=== PATIENT | female | born 1960 | race African-American/Black ===

== ENCOUNTER 2025-09-08 12:59 | Emergency (ER) | payer MEDICAID ==
[~2025-09-08] VITALS: Ht 157.5 cm; Wt 65.0 kg
[~2025-09-08 12:59] MED LIST: LEVO500T2 PO
[2025-09-08 13:01] VITALS: O2SAT 99
[2025-09-08 13:51] LABS: CREATININE 1.1 mg/dL (0.6-1.0); UREA NITROGEN BLOOD 21 mg/dL (9-23)
[2025-09-08 14:14] LABS: PROTEIN TOTAL 7.4 g/dL (6.0-8.3)
[2025-09-08 14:15] LABS: ASPARTATE AMINOTRANSFERASE 21 IU/L (<34); BILIRUBIN DIRECT 0.1 mg/dL (<=3.0); BILIRUBIN TOTAL 0.5 mg/dL (0.1-1.0)
[2025-09-08 14:19] LABS: CLARITY URINE CLEAR (CLEAR); COLOR URINE YELLOW (YELLOW); GLUCOSE URINE NEGATIVE (NEGATIVE); KETONES URINE NEGATIVE (NEGATIVE); LEUKOCYTE ESTERASE URINE TRACE (NEGATIVE); NITRITE URINE NEGATIVE (NEGATIVE); OCCULT BLOOD URINE NEGATIVE (NEGATIVE); PH URINE 5.5 (4.5-8.0); PROTEIN URINE NEGATIVE (NEGATIVE); SPECIFIC GRAVITY URINE 1.026 (1.005-1.030); UROBILINOGEN URINE 1.0 E.U./dL (0.2-1.0)
[2025-09-08] MEDS: ONDANSETRON 4MG ODT PO ONE (14:27)
[2025-09-08] MEDS: KETOROLAC 30MG/ML VIAL IM ONE (14:28)
[2025-09-08 14:44] LABS: SQUAMOUS EPITHELIAL CELL URINE 2+ /lpf (RARE/1+)
[2025-09-08 14:45] LABS: BACTERIA URINE TRACE; TRICHOMONAS URINE 1+
[2025-09-08 14:46] LABS: RBC URINE 0-2 /hpf (0-2)
[2025-09-08 15:34] LABS: BASOPHILS % 0.3 % (0.0-2.0); EOSINOPHILS % 5.9 % (0.0-5.0); HEMATOCRIT. 40.9 % (36.0-48.0); HEMOGLOBIN. 13.6 g/dL (12.0-16.0); LYMPHOCYTES % 30.7 % (20.0-50.0); MEAN PLATELET VOLUME 7.8 fl (7.4-10.4); MONOCYTES % 11.3 % (2.0-8.0); NEUTROPHILS % 51.8 % (40.0-76.0); PLATELET 175 x1000/uL (130-400); RED BLOOD CELL COUNT 4.12 mill/uL (4.2-5.4); RED CELL DISTRIBUTION WIDTH 12.8 % (11.6-14.6)
[2025-09-08] MEDS: METRONIDAZOLE 500MG TABLET PO NR (17:14)
[2025-09-08 17:24] VITALS: BP 141/76; PULSE 85; RESP 18; TEMP 37; O2SAT 100
== END 2025-09-08 17:27 | disposition home or self-care (01) ==
LOC: ER 13:16
DX: A59.9 Trichomoniasis, unspecified (principal); J45.909 Unspecified asthma, uncomplicated; I10 Essential (primary) hypertension; Z88.0 Allergy status to penicillin
CPT/HCPCS: 99285; 74176; 80076; 80048; 81003; 83690; 85025; 96372; 36415; J1885; Q0162